=== PATIENT | female | born 1990 | race Asian ===

== ENCOUNTER 2021-06-03 21:29 | Inpatient (IN) | payer OTHER ==
[~2021-06-03] VITALS: Ht 162.6 cm; Wt 59.2 kg
[2021-06-03] MEDS ORDERED: AMLO1TAB24 PO (21:40)
[2021-06-03] MEDS ORDERED: ACETAMINOPHEN 500 MG TAB PO ONE (22:10)
[2021-06-03] MEDS ORDERED: niCARdipine IV 40 MG in IV 1 EA IV SCH (22:10)
[2021-06-03 22:34] LABS: BASO # 0.1 10^3/uL (0.0-0.2); BASO % 0.9 % (0.0-1.0); EOS # 0.2 10^3/uL (0.0-0.5); EOS % 2.7 % (0.0-3.0); HEMATOCRIT 45.1 % (36.0-47.0); HEMOGLOBIN 15.3 g/dl (12.0-15.5); LYMPH % 46.1 % (24.0-44.0); MEAN CORPUSCULAR HEMOGLOBIN 31.2 pg (27.0-33.0); MEAN CORPUSCULAR HGB CONC 33.9 g/dl (32.0-36.5); MEAN CORPUSCULAR VOLUME 91.9 fl (80.0-96.0); MONO # 0.8 10^3/uL (0.0-0.8); MONO % 12.3 % (2.0-8.0); NEUTROPHILS # 2.4 10^3/uL (1.5-8.5); NEUTROPHILS % 37.8 % (36.0-66.0); PLATELET COUNT, AUTOMATED 232 10^3/uL (150-450); RED BLOOD COUNT 4.91 10^6/uL (4.00-5.40); WHITE BLOOD COUNT 6.4 10^3/uL (4.0-10.0)
[2021-06-03 23:14] LABS: BLOOD UREA NITROGEN 16 MG/DL (7-18); CALCIUM LEVEL 9.1 MG/DL (8.5-10.1); CARBON DIOXIDE LEVEL 28 MEQ/L (21-32); CHLORIDE LEVEL 105 MEQ/L (98-107); CK-MB VALUE MASS 1.3 NG/ML (<3.6); CPK CREATINE PHOSPHOKINASE 117 U/L (26-192); CREATININE FOR GFR 0.85 MG/DL (0.55-1.30); FREE THYROXINE INDEX 3.9 % (1.3-4.8); GLOMERULAR FILTRATION RATE > 60.0 (>60); GLUCOSE, FASTING 103 MG/DL (70-100); MB/CK RELATIVE INDEX 1.11 (< OR =4); POTASSIUM SERUM 3.8 MEQ/L (3.5-5.1); SODIUM LEVEL 140 MEQ/L (136-145); T UPTAKE 37 % (30-39); THYROXINE (T4) 10.5 UG/DL (4.5-12.0); TROPONIN I < 0.02 NG/ML (< 0.10)
[2021-06-03] MEDS ORDERED: ISOVUE-370 76% 100ML VIAL As Ordered ONE (23:17)
[2021-06-03 23:27] LABS: RSV AMPLIFICATION NEGATIVE (NEGATIVE)
[2021-06-04] VITALS (16 sets, daily range): BP systolic 103–144; BP diastolic 65–95
--- NOTE | 2021-06-04 00:22 | REPVR ---
PROCEDURE INFORMATION: Exam: CT Head Without Contrast Exam date and time: 06/03/2021 11:27 PM Age: 31 years old Clinical indication: Pain; Headache; Additional info: Severe headache, hypertensive urgency TECHNIQUE: Imaging protocol: Computed tomography of the head without contrast. Radiation optimization: All CT scans at this facility use at least one of these dose optimization techniques: automated exposure control; mA and/or kV adjustment per patient size (includes targeted exams where dose is matched to clinical indication); or iterative reconstruction. COMPARISON: No relevant prior studies available. FINDINGS: Images through the base of the brain and posterior fossa, including the brainstem are slightly degraded by beam hardening artifacts from the adjacent calvarium. There is no evidence of acute intracranial hemorrhage, extra axial fluid collection or hematoma. There is no midline shift or herniation. The ventricles are not dilated. No evidence of pneumocephalus. No CT findings are seen at the current time to suggest changes of acute territorial vascular infarction. Note is made however, that CT changes, may lag clinical findings in acute CVA. If clinically indicated, consideration could be given to MRI with diffusion weighted imaging, due to its greater sensitivity, for early detection of acute ischemic change. No evidence of regional or global edema. Incidental intracranial calcifications are noted. No pericranial scalp hematoma is seen. No acute cranial vault fracture is seen. No fluid is seen within the visualized paranasal sinuses or mastoid air cells. The visualized middle ear cavities are not opacified. IMPRESSION: No evidence of an acute intracranial abnormality. No evidence of acute territorial major vessel infarct, mass effect, or hemorrhage. Electronically signed by: Willis Liang On 06/04/2021 00:22:11 AM
[2021-06-04] MEDS ORDERED: HOME MED LIST COMPLETE! XX SCH (00:25)
--- NOTE | 2021-06-04 01:08 | REPVR ---
PROCEDURE INFORMATION: Exam: XR Chest Exam date and time: 06/03/2021 11:56 PM Age: 31 years old Clinical indication: Other: Hypertensive urgency TECHNIQUE: Imaging protocol: XR of the chest. Views: 1 view. COMPARISON: No relevant prior studies available. FINDINGS: LUNGS and PLEURAL SPACE: Lung volumes are within normal limits. No evidence of peribronchial thickening. There is no consolidation, pneumothorax, or pleural effusion. No evidence of pulmonary vascular redistribution or overt edema. MEDIASTINUM: There is no mediastinal shift or widening. CARDIAC SILHOUETTE: Cardiothoracic ratio is within normal limits. BONY THORAX: No acute findings are seen. IMPRESSION: No radiographic evidence for acute disease in the chest. Electronically signed by: Willis Liang On 06/04/2021 01:07:58 AM
--- NOTE | 2021-06-04 01:31 | REPVR ---
PROCEDURE INFORMATION: Exam: CT Angiography Neck With Contrast Exam date and time: 06/03/2021 11:27 PM Age: 31 years old Clinical indication: Pain; Headache; Additional info: Severe headache, hypertensive urgency TECHNIQUE: Imaging protocol: Computed tomography angiography of the neck with contrast. 3D rendering (Not supervised by radiologist): MIP and/or 3D reconstructed images were created by the technologist. Radiation optimization: All CT scans at this facility use at least one of these dose optimization techniques: automated exposure control; mA and/or kV adjustment per patient size (includes targeted exams where dose is matched to clinical indication); or iterative reconstruction. Contrast material: ISOVUE 370; Contrast volume: 100 ml; Contrast route: INTRAVENOUS (IV); COMPARISON: CT head without contrast June 03, 2021. FINDINGS: AORTA The entire thoracic aortic arch is not included on this exam. A small segment of the visualized aortic arch is not aneurysmal. No dissection is seen within the visualized arch. Three-vessel branch pattern is noted off the aortic arch. LSCA The left subclavian artery is patent to the left axillary artery. Distal evaluation is slightly compromised by density of adjacent central venous contrast from injection. No hemodynamically significant stenosis is suspected. LVA The left vertebral artery is patent and is unremarkable to the basilar artery. No hemodynamically significant compromise is seen. BCA The brachiocephalic artery is patent to its bifurcation. No hemodynamically significant compromise is seen. RSCA The right subclavian artery is patent to the right axillary artery. No hemodynamically significant compromise is seen. RVA The right vertebral artery is patent and equally dominant to the left. The vertebral artery is patent to the basilar artery without evidence of hemodynamically significant compromise. LCCA The left common carotid artery is patent and unremarkable to its bifurcation. No hemodynamically significant compromise is seen. LECA The left external carotid artery is patent to its proximal branches without evidence of hemodynamically significant compromise. LICA The left internal carotid artery is patent to the skull base without evidence of hemodynamically significant compromise or dissection. RCCA The right common carotid artery is patent and unremarkable to its bifurcation. RECA The right external carotid artery is patent to its proximal branches. No hemodynamically significant compromise is seen. CRISTHIAN There is mild narrowed appearance of the proximal most right internal carotid artery (ex image 37, series 509), most likely anatomic variation but could be secondary to soft plaque, just proximal to the bulb. No hemodynamically significant compromise is seen. The right internal carotid artery is patent to the skull base. There is no dissection. LUNGS The visualized lung apices are unremarkable. A few subpleural opacities are noted which may be secondary to minimal atelectasis and/or pulmonary parenchymal scarring. SOFT TISSUES There is mild prominence of the palatine tonsils. This could be correlated and followed up clinically for significance. No abscess collection is seen within the neck. No prevertebral soft tissue effusion is seen. The epiglottis is not thickened. There is slight asymmetry of the vocal folds which could be correlated with clinical exam. The thyroid gland is homogeneous. The submandibular glands are symmetric. The parotid glands are unremarkable. There are multiple small left supraclavicular lymph nodes of uncertain significance. These are not pathologic by size criteria but are slightly suspicious based upon asymmetric number compared to the right. These may be reactive nodes secondary to an unknown underlying left upper extremity process. Clinical correlation and follow-up is advised. There are multiple small non-specific cervical lymph nodes bilaterally. OSSEOUS The cervical spine is unremarkable in appearance. No malalignment or disc space loss is seen. IMPRESSION: There is mild noncalcified apparent luminal narrowing of the proximal most right internal carotid artery adjacent to the carotid bulb. This may be anatomic variation or could be related to noncalcified plaque. This does not appear to be hemodynamically significant. No other area of atherosclerosis or hemodynamically significant major arterial compromise is seen. Slightly suspicious multiple left supraclavicular lymph nodes are noted. These could be reactive to an unknown process. Clinical correlation and follow-up is advised. Other findings discussed above. REFERENCES: NASCET CRITERIA. The degree of internal carotid artery stenosis is based on NASCET criteria. Normal is no stenosis. Mild is less than 50% stenosis. Moderate is 50-69% stenosis. Severe is 70% to 99% stenosis. Total occlusion is no detectable patent lumen. Electronically signed by: Willis Liang On 06/04/2021 01:30:33 AM
--- NOTE | 2021-06-04 01:47 | REPVR ---
PROCEDURE INFORMATION: Exam: CT Angiography Head With Contrast, Arteriography Exam date and time: 06/03/2021 11:27 PM Age: 31 years old Clinical indication: Pain; Headache; Additional info: Severe headache, hypertensive urgency TECHNIQUE: Imaging protocol: Computed tomography angiography of the head with contrast. Exam focused on the arteries. 3D rendering (Not supervised by radiologist): MIP and/or 3D reconstructed images were created by the technologist. Radiation optimization: All CT scans at this facility use at least one of these dose optimization techniques: automated exposure control; mA and/or kV adjustment per patient size (includes targeted exams where dose is matched to clinical indication); or iterative reconstruction. Contrast material: ISOVUE 370; Contrast volume: 100 ml; Contrast route: INTRAVENOUS (IV); COMPARISON: CT head without contrast June 03, 2021. FINDINGS: VA The distal vertebral arteries are nearly equally dominant and patent to the basilar artery. PICA The posteroinferior cerebellar arteries are patent bilaterally. The right is slightly tortuous, forming a loop adjacent to the brainstem, as anatomic variation. Origin of the right posteroinferior cerebellar artery appears to be extradural. BA The basilar artery is patent and unremarkable to its distal bifurcation. No hemodynamically significant compromise or aneurysm is seen. AICA The right anteroinferior cerebellar artery is patent. Origin of the left anteroinferior cerebellar artery is not conclusively identified, however the distal vessel is seen. This may be secondary to technical artifact. SCA The superior cerebellar arteries are patent bilaterally. [employer] P1 and P2 segments of the posterior cerebral arteries are unremarkable bilaterally. PCOM The right posterior communicating artery is patent. The left posterior communicating artery is not conclusively identified, however may be present as a faintly visualized vessel, likely anatomic variation. ICA The distal intracranial internal carotid arteries are patent to the ICA terminus bilaterally without evidence of hemodynamically significant compromise. No aneurysm is seen. CELENA The A1 and A2 segments of the anterior cerebral arteries are patent and equally dominant. No aneurysm is seen. ACOM The anterior communicating artery is visualized and is patent. MCA M1 segments of the middle cerebral arteries are patent bilaterally to the MCA bifurcations. No aneurysm or hemodynamically significant compromise is seen. BRAIN Peripheral vascularity appears symmetric bilaterally, however if there is clinical suspicion for acute ischemic change, consider diffusion-weighted MRI or quantitative perfusion imaging, both of which would be more sensitive to early detection. No arterial phase brain parenchymal enhancing lesion or vascular malformation is seen. The pituitary sella is not empty. The pituitary gland does not appear enlarged. There is no deviation of the pituitary stalk. The optic nerve root sheaths do not appear dilated. Please refer to same-day CT brain report for more complete findings on brain parenchyma. DVS Major dural venous sinuses are patent, without evidence of thrombosis. The left transverse sinus is seen to be dominant. Enhancement is seen within the cavernous sinuses, right slightly greater than left. No evidence of thrombosis is seen. IMPRESSION: No evidence of an abrupt vessel occlusion, dissection, aneurysm or hemodynamically significant compromise. Findings discussed above in detail. Electronically signed by: Willis Liang On 06/04/2021 01:47:05 AM
[2021-06-04] MEDS ORDERED: MAALOX 30 ML SUSP *UDC PO PRN (02:35)
[2021-06-04] MEDS ORDERED: ACETAMINOPHEN TAB 650MG DOSE (2X325MG) PO PRN (02:35)
[2021-06-04] MEDS ORDERED: MOM 30ML SUSPENSION UDC PO PRN (02:35)
--- NOTE | 2021-06-04 03:02 | HPEPDOC ---
[facility] Medical History & Physical Date of Admission Jun 04, 2021 Date of Service: Jun 04, 2021 History and Physical CHIEF COMPLAINT: Headache and nausea HISTORY OF PRESENT ILLNESS: 31-year-old female with a past medical history of hypertension presented to the ER complaining of headache, nausea, blurred vision and tremulousness. She states that the headache is located to the right parietal region which is intermittent. She denies any chest pain palpitation shortness of breath or syncopal episode. Found to have a blood pressure of 235/127. She is afebrile with a pulse of 75 respiratory of 18 and saturating 90% on room air. Patient's home hypertension meds regimen included amlodipine 5 mg daily. Patient was started on nicardipine infusion in the ED for blood pressure control. The patient complained of blurred vision and headache CT of the head CT angiogram of the head and CT angiogram of the neck were ordered. Patient will be admitted to hospitalist service for the management of hypertensive emergency. Patient had a negative troponin and her kidney function was within normal limits with a creatinine of 0.85. Patient's thyroid panel was within normal limits. PAST MEDICAL HISTORY: Hypertension PAST SURGICAL HISTORY: Reports no prior surgical history SOCIAL HISTORY: Patient denies smoking Patient denies etoh use Patient denies illicit drug use ALLERGIES: Please see below. REVIEW OF SYSTEMS: 10 point ROS conducted, relevant findings are noted in HPI. HOME MEDICATIONS: Please see below. PHYSICAL EXAMINATION: VITAL SIGNS: please see below General: NAD, comfortable HEENT: PERRLA, EOMI, sclerae clear Neck: supple, normal ROM, no JVD. palpable L cervical LNs, at most 5 mm in diameter. Respiratory: lungs CTAB, no wheeze, no rales, no crackles CVS: RRR, normal S1, S2, no murmurs, no pulse deficit Abdo: soft, no masses, no hepatosplenomegaly, BS+, no rebound tenderness Extremities: no edema, pulses 2+ MSK: no joint deformities, normal ROM Neuro: no focal neuro deficits, moving all 4 extremities, CN2-12 intact. Strength 5/5 in all 4 extremities. No nystagmus. Psych: calm, cooperative, AAO x 3 LABORATORY DATA: See below. IMAGING: CXR (06/04/21): IMPRESSION: No radiographic evidence for acute disease in the chest. CTA head (06/04/21): IMPRESSION: No evidence of an abrupt vessel occlusion, dissection, aneurysm or hemodynamically significant compromise. Findings discussed above in detail. CT head wo contrast (06/03/21): IMPRESSION: No evidence of an acute intracranial abnormality. No evidence of acute territorial major vessel infarct, mass effect, or hemorrhage. MICROBIOLOGY: Please see below. ASSESSMENT: 31-year-old female with a past medical history presented to the ER with hypertensive emergency with a systolic blood pressure of 235. She complained of right parietal headache with blurred vision associated with nausea and tremulousness. Patient was found to have a normal troponin and normal renal function. PLAN: Hypertensive emergency: Patient was placed on nicardipine infusion in the ER. BP was treated aggressively, dropping from SBP 235 to 125 mmHg systolic. Goal blood pressure is 160/80 at this time. We will not pursue to lower blood pressure lower than this in the next 24 hours. We will admit the patient to ICU at this time holding the nicardipine drip which can be resumed if the patient blood pressure rises above 180 systolic. Will resume patient's home dose amlodipine 5 mg daily. Obtain 2D echo. Obtain renal ultrasound with dopplers.. Check serum catecholamines and plasma metanephrines. Check urine VMA. R parietal headache: associated with blurred vision. CT head negative for ICH. CTA head and neck negative for dissection and aneurysm. Headache resolved with BP treatment. Concerning multiple L supraclavicular lymph nodes: no fevers, no chills. No unintentional weight loss. Dispo: admission expect to last > 2 midnights Vital Signs Vital Signs Date Time Temp Pulse Resp B/P (MAP) Pulse Ox O2 Delivery O2 Flow Rate FiO2 06/04/21 01:50 79 135/64 (87) 97 06/03/21 23:15 Room Air 06/03/21 21:30 98.7 18 Laboratory Data Labs 24H Laboratory Tests 2 06/03/21 22:30: Immature Granulocyte % (Auto) 0.2, Neutrophils (%) (Auto) 37.8, Lymphocytes (%) (Auto) 46.1H, Monocytes (%) (Auto) 12.3H, Eosinophils (%) (Auto) 2.7, Basophils (%) (Auto) 0.9, Neutrophils # (Auto) 2.4, Lymphocytes # (Auto) 3.0, Monocytes # (Auto) 0.8, Eosinophils # (Auto) 0.2, Basophils # (Auto) 0.1, Nucleated Red Blood Cells % (auto) 0.0, Anion Gap 7L, Glomerular Filtration Rate > 60.0, Calcium Level 9.1, Total Creatine Kinase 117, Creatine Kinase MB 1.3, Creatine Kinase MB Relative Index 1.11, Troponin I < 0.02, Thyroid Stimulating Hormone (TSH) 1.660, Free Thyroxine Index 3.9, Thyroxine (T4) 10.5, Triiodothyronine (T3) Uptake 37, POC Beta HCG, Quantitative < 5.0, Coronavirus (COVID-19)(PCR) NEGATIVE, Influenza Type A (RT-PCR) NEGATIVE, Influenza Type B (RT-PCR) NEGATIVE, Respiratory Syncytial Virus (PCR) NEGATIVE CBC/BMP Laboratory Tests 06/03/21 22:30 Home Medications Scheduled Amlodipine Besylate (Amlodipine Besylate) 5 Mg Tablet, 5 MG PO DAILY Allergies Coded Allergies: No Known Allergies (Unverified , 06/03/21) A-FIB/CHADSVASC A-FIB History Current/History of A-Fib/PAF?: No ANASTACIO CABRAL MD Jun 04, 2021 03:02
[2021-06-04] MEDS: amLODIPine 5 MG TAB PO SCH ×2 (04:12→08:39)
[2021-06-04 05:44] LABS: APPEARANCE, URINE CLEAR (CLEAR); BACTERIA, URINE AUTO NEGATIVE (NEGATIVE); BILIRUBIN, URINE AUTO NEGATIVE (NEGATIVE); BLOOD, URINE BLOOD NEGATIVE (NEGATIVE); COLOR, URINE STRAW (YELLOW); GLUCOSE, URINE (UA) AUTO NEGATIVE (NEGATIVE); KETONE, URINE AUTO NEGATIVE (NEGATIVE); LEUKOCYTE ESTERASE, URINE AUTO NEGATIVE (NEGATIVE); NITRITE, URINE AUTO NEGATIVE (NEGATIVE); PROTEIN, URINE AUTO NEGATIVE (NEGATIVE); RBC, URINE AUTO 1 /HPF (0-3); SQUAMOUS EPITHELIAL CELL UR AU 0 /HPF (0-6); UROBILINOGEN, URINE AUTO 0.2 mg/dL (0.0-2.0); WBC, URINE AUTO 0 /HPF (0-3)
--- NOTE | 2021-06-04 07:10 | REPVR ---
PROCEDURE INFORMATION: Exam: US Retroperitoneal Limited, Kidneys US Duplex Artery or Vein of the Abdominal and/or Reproductive Organs, Limited Exam date and time: 06/04/2021 6:32 AM Age: 31 years old Clinical indication: Other: HTN; Additional info: Hypertensive urgency TECHNIQUE: Imaging protocol: Real-time ultrasound of the retroperitoneum with image documentation. Examination was focused on the kidneys. Real-time duplex ultrasound scan of the arterial or venous flow of the abdomen and/or reproductive organs, with color Doppler flow and spectral waveform analysis with image documentation. Exam focused on the region of clinical interest. Duplex images were received to evaluate vascular conditions. A total of 49 static grayscale, color Doppler and spectral images are submitted for remote interpretation, following completion of the examination by the technologist. architectural technologist urinary tract worksheet and renal Doppler worksheet are available and were reviewed. COMPARISON: No relevant prior studies available. FINDINGS: RIGHT The right kidney measures 11.1 x 3.4 x 4.5 cm. Renal echogenicity is slightly heterogeneous. Cortical thickness is 2 cm. No echogenic shadowing right renal calculi or hydronephrosis seen. No obvious renal lesion is seen. No perinephric fluid is seen. LEFT The left kidney measures 11.3 x 5.5 x 5.1 cm. Left renal echogenicity is slightly heterogeneous. Left renal cortical thickness is up to 2.1 cm. No left renal calculus or hydronephrosis is seen. No perinephric fluid is seen. No obvious renal lesion is seen. BLADDER The urinary bladder measures 7.8 cm x 2.2 cm x 3.4 cm. No perivesical fluid is seen. Urinary bladder wall thickness is approximately 4 mm. Ureteral jets are not evaluated on this exam. Postvoid residual was not evaluated on this exam. SPECTRAL/DOPPLER The visualized abdominal aorta is not aneurysmal. Color flow is seen within the abdominal aorta. Triphasic spectral arterial waveforms are seen within the abdominal aorta with peak systolic velocity of 62.9 cm/s. No obvious shadowing calcified plaque is seen within either kidney on grayscale imaging. The right renal artery demonstrates peak velocity of 83.1 cm/s. Right renal to aortic velocity ratio is 1.3. Resistive index at the upper pole vessels of the right kidney is 0.44, at the midpole of the right kidney 0.47 and at the lower pole of the right kidney 0.48. Acceleration times of the right upper pole, midpole and lower pole are all less than 0.07, within normal limits. Left renal peak systolic velocity is 72.8 cm/s. Left renal to aortic velocity ratio is 1.15. Resistive index of the left upper pole vasculature is 0.62, at the midpole 0.4 and at the lower pole 0.47. Acceleration time of the left upper pole, midpole and lower pole are all less than 0.07, which is within normal limits. IMPRESSION: No hydronephrosis or renal calculi bilaterally. No ultrasound evidence of renal artery stenosis bilaterally. Findings discussed above in detail. Electronically signed by: Willis Liang On 06/04/2021 07:09:26 AM
[2021-06-04 10:31] LABS: BASO % 0.6 % (0.0-1.0); EOS # 0.1 10^3/uL (0.0-0.5); EOS % 2.3 % (0.0-3.0); HEMOGLOBIN 15.8 g/dl (12.0-15.5); LYMPH # 1.9 10^3/uL (1.5-5.0); LYMPH % 41.3 % (24.0-44.0); MEAN CORPUSCULAR HEMOGLOBIN 31.1 pg (27.0-33.0); MEAN CORPUSCULAR HGB CONC 33.6 g/dl (32.0-36.5); MEAN CORPUSCULAR VOLUME 92.5 fl (80.0-96.0); MONO # 0.5 10^3/uL (0.0-0.8); MONO % 9.8 % (2.0-8.0); NEUTROPHILS # 2.2 10^3/uL (1.5-8.5); NEUTROPHILS % 45.8 % (36.0-66.0); PLATELET COUNT, AUTOMATED 236 10^3/uL (150-450); RED BLOOD COUNT 5.08 10^6/uL (4.00-5.40); WHITE BLOOD COUNT 4.7 10^3/uL (4.0-10.0)
[2021-06-04 10:57] LABS: ALBUMIN 3.7 GM/DL (3.2-5.2); ALT/SGPT 20 U/L (12-78); BILIRUBIN,TOTAL 0.3 MG/DL (0.2-1.0); BLOOD UREA NITROGEN 12 MG/DL (7-18); CALCIUM LEVEL 9.3 MG/DL (8.5-10.1); CARBON DIOXIDE LEVEL 27 MEQ/L (21-32); CHLORIDE LEVEL 104 MEQ/L (98-107); CREATININE FOR GFR 0.87 MG/DL (0.55-1.30); GLOMERULAR FILTRATION RATE > 60.0 (>60); GLUCOSE, FASTING 146 MG/DL (70-100); MAGNESIUM LEVEL 2.3 MG/DL (1.8-2.4); POTASSIUM SERUM 3.6 MEQ/L (3.5-5.1); SODIUM LEVEL 138 MEQ/L (136-145)
--- NOTE | 2021-06-04 15:52 | ECHO ---
ECHOCARDIOGRAM DATE OF PROCEDURE: 06/04/2021 Age: Gender: Female Height: 152 cm. Weight: 60 kg REFERRING PHYSICIAN: Harrison Lindo M.D. INDICATION: Hypertensive emergency. MEASUREMENTS: 2D Measurements: Aortic root 3.1 cm Intraventricular septum 1.31 cm Posterior wall 1.27 cm Left ventricle diastole 3.2 cm Left atrium 2.3 cm Doppler Measurements: No aortic stenosis or regurgitation No mitral stenosis or regurgitation Trace tricuspid regurgitation No pulmonic regurgitation Mitral E velocity 48.1 cm/sec Mitral A velocity 48.1 cm/sec Mitral deceleration time 103 msec MITRAL ANNULAR TISSUE DOPPLER: E prime septal 8.3 cm/sec E prime lateral 9.9 cm/sec DESCRIPTION: Rhythm was sinus. Image quality was good. This was a 2D, M-mode, color flow Doppler and pulse wave Doppler examination and included mitral annular tissue Doppler and strain analysis. CONCLUSIONS: 1. Mild concentric left ventricular hypertrophy. No regional left ventricular (LV) wall motion abnormalities. Normal LV systolic function. Left ventricular ejection fraction (LVEF) 59% (3D). Normal LV diastolic function. Normal peak longitudinal strain pattern. 2. Aortic root normal in size. No coarctation. 3. Normal right ventricle size and systolic function. Suggestive of normal pulmonary artery (PA) systolic pressure and central venous pressure (CVP) (5-10 mmHg). Right atrium appeared normal in size. 4. Structurally and functionally normal cardiac valve. 5. No pericardial effusion.
--- NOTE | 2021-06-04 20:38 | ECGEPIP ---
[facility] - ED Test Date: 2021-06-04 Pat Name: AMAN CHRISTIAN Department: Room: [place] [address] Gender: Female Mail Clerk: [place] : 1990 Requested By: LV ROJAS Order Number: [id number] Reading MD: Jonathan Sprague Measurements Intervals [place] Rate: 83 P: 47 DE: 180 QRS: 74 QRSD: 96 T: 25 QT: 372 QTc: 437 Interpretive Statements Normal sinus rhythm POOR R WAVE PROGRESSION Incomplete right bundle branch block NONSPECIFIC T WAVE ABNORMALITY(S) NO PRIORS FOR COMPARISON Electronically Signed on 06-04-2021 20:38:05 EDT by Jonathan Sprague
[2021-06-05 06:00] VITALS: BP 134/78
[2021-06-05] MEDS ORDERED: LISI2.5T9 PO (08:52)
--- NOTE | 2021-06-05 08:57 | DS.PDOC ---
Discharge Summary General Date of Admission Jun 04, 2021 at 02:32 Date of Discharge 06/05/21 Discharge Summary PROCEDURES PERFORMED DURING STAY: [None]. DISCHARGE DIAGNOSES: #hypertensive emergency #glucose intolerance COMPLICATIONS/CHIEF COMPLAINT: Hypertensive Crisis. HPI/HOSPITAL COURSE: . DISCHARGE MEDICATIONS: Please see below. ALLERGIES: Please see below. PHYSICAL EXAMINATION ON DISCHARGE: Vital Signs: reviewed General: NAD, lying comfortably in bed HEENT: NC/AT, EOMI Neck: supple, no masses Chest: lungs CTA B/L Heart: +S1S2, RRR Abd: soft, NT, ND, +BS Ext: no edema Skin: no rashes MSK: full ROM at large joints Neuro: no gross focal deficits Psych: AAOx3 LABORATORY DATA: Please see below. ACTIVITY: [As tolerated]. DIET: 2 gram sodium, carb consistent DISPOSITION: Discharge home DISCHARGE INSTRUCTIONS: 1. Follow up PCP in 3-5 days, including blood pressure, blood glucose and abn ormal findings on imaging (supraclavicular lymph nodes). DISCHARGE CONDITION: [Stable]. TIME SPENT ON DISCHARGE: 35 minutes. Vital Signs/I&Os Vital Signs Date Time Temp Pulse Resp B/P (MAP) Pulse Ox O2 Delivery O2 Flow Rate FiO2 06/05/21 06:00 97.5 67 16 134/78 (96) 97 Room Air I&O- Last 24 Hours up to 6 AM 06/05/21 06:00 Intake Total 630 ml Balance 630 ml Laboratory Data Labs 24H Laboratory Tests 2 06/04/21 10:17: Immature Granulocyte % (Auto) 0.2, Neutrophils (%) (Auto) 45.8, Lymphocytes (%) (Auto) 41.3, Monocytes (%) (Auto) 9.8H, Eosinophils (%) (Auto) 2.3, Basophils (%) (Auto) 0.6, Neutrophils # (Auto) 2.2, Lymphocytes # (Auto) 1.9, Monocytes # (Auto) 0.5, Eosinophils # (Auto) 0.1, Basophils # (Auto) 0.0, Nucleated Red Blood Cells % (auto) 0.0, Anion Gap 7L, Glomerular Filtration Rate > 60.0, Calcium Level 9.3, Magnesium Level 2.3, Total Bilirubin 0.3, Aspartate Amino Transf (AST/SGOT) 15, Alanine Aminotransferase (ALT/SGPT) 20, Alkaline Phosphatase 47, Total Protein 8.0, Albumin 3.7, Albumin/Globulin Ratio 0.9L CBC/BMP Laboratory Tests 06/04/21 10:17 Discharge Medications Scheduled Amlodipine Besylate (Amlodipine Besylate) 5 Mg Tablet, 5 MG PO DAILY, (Reported) Lisinopril (Lisinopril) 2.5 Mg Tablet, 1 TAB PO DAILY Allergies Coded Allergies: No Known Allergies (Unverified , 06/03/21) MENA CHAVIS MD Jun 05, 2021 08:57
[2021-06-05 09:03] VITALS: BP 134/89
[2021-06-05] MEDS: amLODIPine 5 MG TAB PO SCH (09:03)
[2021-06-05] MEDS ORDERED: AMLO1TAB24 PO (11:24)
== END 2021-06-05 11:23 | disposition home or self-care (01) | DRG 305 ==
LOC: M ED 21:29 → M ED INP 06-04 02:32 → M ICU 06-04 04:00 → M MSPAV 06-04 23:39
PROVIDERS: ADMIT Family Medicine; ATTEND Internal Medicine
DX: I16.1 Hypertensive emergency (principal); I10 Essential (primary) hypertension; Z20.822 Contact with and (suspected) exposure to COVID-19; Z79.899 Other long term (current) drug therapy

== ENCOUNTER → 2021-07-20 | Outpatient (CLI) | payer OTHER ==
[~2021-07-20] MED LIST: AMLO1TAB24 PO; ISOVUE-370 76% 100ML VIAL As Ordered ONE; LISI2.5T9 PO
--- NOTE | 2021-07-20 14:55 | REPVR ---
PROCEDURE INFORMATION: Exam: CT Angiography Neck With Contrast Exam date and time: 07/20/2021 11:12 AM Age: 31 years old Clinical indication: Other: Enlarged lymphnodes TECHNIQUE: Imaging protocol: Computed tomography angiography of the neck with contrast. 3D rendering (Not supervised by radiologist): MIP and/or 3D reconstructed images were created by the technologist. Radiation optimization: All CT scans at this facility use at least one of these dose optimization techniques: automated exposure control; mA and/or kV adjustment per patient size (includes targeted exams where dose is matched to clinical indication); or iterative reconstruction. Contrast material: ISOVUE 370; Contrast volume: 75 ml; Contrast route: INTRAVENOUS (IV); COMPARISON: CT ANGIO NECK 06/03/2021 11:21 PM FINDINGS: Right common carotid artery: No stenosis. No dissection or occlusion. Right internal carotid artery: Noncalcified atherosclerotic plaque is present at the right carotid bifurcation and within the proximal right internal carotid artery. This is causing approximately 30% stenosis of the right ICA origin. Right external carotid artery: No occlusion or stenosis of the origin. Left common carotid artery: No stenosis. No dissection or occlusion. Left internal carotid artery: No stenosis of the extracranial segment. No dissection or occlusion. Left external carotid artery: No occlusion or stenosis of the origin. Right vertebral artery: No stenosis. No dissection or occlusion. Left vertebral artery: No stenosis. No dissection or occlusion. Lymph nodes: Numerous tiny the the nonspecific left cervical and supraclavicular lymph nodes are present. Soft tissues: Normal. No significant soft tissue swelling. Bones/joints: No acute fracture. IMPRESSION: 1. No acute abnormality. 2. Chronic findings as discussed above. REFERENCES: NASCET CRITERIA. The degree of internal carotid artery stenosis is based on NASCET criteria. Normal is no stenosis. Mild is less than 50% stenosis. Moderate is 50-69% stenosis. Severe is 70% to 99% stenosis. Total occlusion is no detectable patent lumen. Electronically signed by: Ebenezer Blanchard On 07/20/2021 14:55:27 PM
== END ==
LOC: M RAD 10:51
PROVIDERS: ATTEND Physician Assistant
DX: R59.0 Localized enlarged lymph nodes (principal); I65.21 Occlusion and stenosis of right carotid artery
CPT/HCPCS: 70498; Q9967

== ENCOUNTER → 2022-01-31 | Outpatient (CLI) | payer OTHER ==
[~2022-01-31] MED LIST changes: -ISOVUE-370 76% 100ML VIAL As Ordered ONE
== END ==
LOC: M RAD 08:22
PROVIDERS: ATTEND Physician Assistant
DX: I10 Essential (primary) hypertension (principal)

== ENCOUNTER 2023-08-22 14:25 | Emergency (ER) | payer OTHER ==
[~2023-08-22] VITALS: Ht 162.6 cm; Wt 62.1 kg
[2023-08-22] MEDS ORDERED: AMIT10TA7 (14:35)
[2023-08-22] MEDS ORDERED: ZONI50CA11 (14:35)
[2023-08-22] MEDS ORDERED: NORG1TAB38 (14:35)
[2023-08-22] MEDS ORDERED: GABA-1171 (14:35)
[2023-08-22] MEDS ORDERED: AMLO10CA30 (14:35)
[2023-08-22] MEDS ORDERED: FAMOTIDINE 20MG/2ML VIAL IVP ONE (15:20)
[2023-08-22] MEDS ORDERED: NS 1,000 ML IV ONE (15:20)
[2023-08-22] MEDS ORDERED: methylPREDNISolone 125MG 2ML VIAL IV ONE (15:20)
[2023-08-22 16:27] VITALS: BP 147/96; TEMP 99.2; O2SAT 100
[2023-08-22] MEDS ORDERED: ALBU6.7H6 INH (16:55)
[2023-08-22] MEDS ORDERED: PRED20TA PO (16:55)
== END 2023-08-22 17:00 | disposition home or self-care (01) ==
LOC: M ED 14:25
DX: L30.9 Dermatitis, unspecified (principal); R05.9 Cough, unspecified; I10 Essential (primary) hypertension
CPT/HCPCS: 96361; 96374; 96375; 99283; J2930; S0028

== ENCOUNTER 2023-09-03 22:29 | Emergency (ER) | payer OTHER ==
[~2023-09-03] VITALS: Ht 162.6 cm; Wt 63.1 kg
[2023-09-03 22:29] VITALS: TEMP 97.5
[~2023-09-03 22:29] MED LIST changes: +ALBU6.7H6 INH; +AMIT10TA7; +AMLO10CA30; +GABA-1171; +NORG1TAB38; +PRED20TA PO; +ZONI50CA11
[2023-09-04] MEDS ORDERED: PRED20TA PO (01:45)
[2023-09-04] MEDS ORDERED: predniSONE 20 MG TAB PO ONE (01:45)
[2023-09-04 02:30] VITALS: BP 147/72; O2SAT 99
== END 2023-09-04 02:26 | disposition home or self-care (01) ==
LOC: M ED 22:29
DX: T78.40XA Allergy, unspecified, initial encounter (principal); I10 Essential (primary) hypertension; Z79.51 Long term (current) use of inhaled steroids; Z79.899 Other long term (current) drug therapy; Z79.52 Long term (current) use of systemic steroids; Z79.3 Long term (current) use of hormonal contraceptives
CPT/HCPCS: 99283; J7512

== ENCOUNTER 2023-11-30 22:06 | Emergency (ER) | payer OTHER ==
[~2023-11-30] VITALS: Ht 160 cm; Wt 63.8 kg
[2023-11-30] MEDS ORDERED: LOTR5CAP2 PO (22:16)
[2023-11-30] MEDS ORDERED: ATOG60TA PO (22:16)
[2023-11-30 23:09] LABS: RSV AMPLIFICATION NEGATIVE (NEGATIVE)
[2023-11-30 23:30] VITALS: BP 147/97; O2SAT 98
[2023-11-30] MEDS ORDERED: DOXY100C3 PO (23:39)
[2023-11-30] MEDS: DOXYCYCLINE HYCLATE 100MG TABLET PO ONE (23:40)
[2023-11-30 23:45] VITALS: TEMP 98.4
== END 2023-11-30 23:46 | disposition home or self-care (01) ==
LOC: M ED 22:06
DX: J18.1 Lobar pneumonia, unspecified organism (principal); I10 Essential (primary) hypertension; G43.909 Migraine, unspecified, not intractable, without status migrainosus; Z79.52 Long term (current) use of systemic steroids; Z79.891 Long term (current) use of opiate analgesic; Z79.899 Other long term (current) drug therapy